=== PATIENT | female | born 1960 | race Caucasian/White ===

== ENCOUNTER 2017-04-09 15:44 | Emergency (ER) | payer OTHER ==
[~2017-04-09] VITALS: Ht 162.6 cm; Wt 65.5 kg
[~2017-04-09 15:44] MED LIST changes: -CO Q-10100 MG PO; -ESTRADIOL1 EA14 TD; -FISH OIL 1,0001 EAC7 PO; -VITAMIN B-12500 MC3 PO; -WELCHOL625 MG PO
[2017-04-09 16:30] LABS: HEMATOCRIT 37.2 % (36.0-46.0); HEMOGLOBIN 13.3 G/DL (11.9-15.5); MCH 32.6 PG (29.0-34.0); MCHC 35.8 G/DL (30.0-36.0); MCV 91.2 FL (83-99); PLATELET COUNT 249 K/uL (156-360); RBC DIS.WIDTH-CV 11.9 % (11.8-14.6); RBC DIS.WIDTH-SD 39.8 % (39-53); RED BLOOD COUNT 4.08 M/uL (3.80-5.20); WHITE BLOOD COUNT 6.1 K/uL (4.1-10.2)
[2017-04-09 16:33] LABS: CHLORIDE 106 mEq/L (99-109); POTASSIUM 4.6 mEq/L (3.7-5.4); SODIUM 139 mEq/L (136-147)
[2017-04-09 16:35] LABS: GLUCOSE 89 mg/dL (70-99)
[2017-04-09 16:39] LABS: CREATININE 0.8 mg/dL (0.6-1.3); GFR ESTIMATE (CALCULATED) > 59 mL/min/
[2017-04-09 16:40] LABS: UREA NITROGEN (BUN) 15 mg/dL (9-23)
[2017-04-09 16:47] LABS: TROP-I INTERPRETATION NEGATIVE; TROPONIN-I < 0.01 ng/mL (0.0-0.30)
[2017-04-09] MEDS ORDERED: ESTRADIOL1 EA14 TD (16:57)
[2017-04-09] MEDS ORDERED: CO Q-10100 MG PO (16:57)
[2017-04-09] MEDS ORDERED: FISH OIL 1,0001 EAC7 PO (16:57)
[2017-04-09] MEDS ORDERED: WELCHOL625 MG PO (16:57)
[2017-04-09] MEDS ORDERED: VITAMIN B-12500 MC3 PO (16:57)
[2017-04-09 17:02] LABS: MAGNESIUM 1.8 mg/dL (1.3-2.7)
[2017-04-09 17:17] LABS: D-DIMER ELISA < 150.00 ng/mLDDU (<230)
[2017-04-09 18:03] LABS: THYROTROPIN (TSH) 2.7 MIU/L (0.4-5.5)
[2017-04-09 19:50] LABS: TROP-I INTERPRETATION NEGATIVE; TROPONIN-I < 0.01 ng/mL (0.0-0.30)
[2017-04-09 20:25] VITALS: BP 113/65
== END 2017-04-09 20:28 | disposition home or self-care (01) ==
LOC: EME 15:44
PROVIDERS: Physician Assistant
DX: R07.89 Other chest pain (principal); E78.5 Hyperlipidemia, unspecified; Z82.49 Family history of ischemic heart disease and other diseases of the circulatory system; R03.0 Elevated blood-pressure reading, without diagnosis of hypertension; R94.31 Abnormal electrocardiogram [ECG] [EKG]; K21.9 Gastro-esophageal reflux disease without esophagitis; Z90.49 Acquired absence of other specified parts of digestive tract; Z88.1 Allergy status to other antibiotic agents
CPT/HCPCS: 71046; 80048; 83735; 84443; 84484; 85027; 85379; 93005; 99281; 99285

== ENCOUNTER → 2017-04-09 | Outpatient (CLI) | payer OTHER ==
[~2017-04-09] VITALS: Ht 170.2 cm; Wt 65.3 kg
[~2017-04-09] MED LIST: BIOTIN; Biotin PO; CO Q-10100 MG PO; CRANBERRY 4001 EAC1 PO; ESTRADIOL1 EA14 TD; FISH OIL 1,0001 EAC7 PO; LASIX; Levothroid,Synthroid PO; MECLIZINE; MEGA BIOTIN10000 MCG PO; OMEPRAZOLE; PREDNISONE; PROTONIX40 MG PO; Percocet 5/325,Endoc PO; Prevacid PO; SYNTHROID; SYNTHROID112 MCG PO; TRICOR145 MG PO; VITAMIN B-12500 MC3 PO; VITAMIN D2000 UNIT PO; WELCHOL625 MG PO; ZANTAC150 MG PO; [UNRECOGNIZED DRUG - CODE] TD
== END | disposition home or self-care (01) ==
LOC: AMB 13:52
PROC: 0BJ0XZZ Inspection of Tracheobronchial Tree, External Approach (ICD-10-PCS; principal; 2017-04-09)
DX: R04.2 Hemoptysis (principal); Z53.09 Procedure and treatment not carried out because of other contraindication; R07.9 Chest pain, unspecified
CPT/HCPCS: 93005